=== PATIENT | male | born 1970 | race African-American/Black ===

== ENCOUNTER 2018-09-28 07:21 | Day surgery (SDC) | payer OTHER, BC ==
[~2018-09-28 07:21] MED LIST: Dexamethasone 4 MG/ML SDV ONE; HYDROmorphone 0.5 MG/0.5 ML Syringe ONE; Lactated Ringers 0 ML ONE; Lactated Ringers 1,000 ML IV SCH; Lidocaine 1% 6 ML ONE; Lidocaine 1%/Sod Bicarbonate in NS 8.4% 1 ML Syringe IDERM PRN; Midazolam 1 MG/ML 2 ML SDV ONE; Ondansetron 4 MG/2 ML SDV ONE; Propofol 200 MG/20 ML SDV ONE; Sodium Chloride 0.9% 10 ML Syringe FLUSH PRN; ceFAZolin 1 GM Vial ONE; fentaNYL 250 MCG/5 ML SDV ONE
--- NOTE | 2018-09-28 07:59 | PCM.PREANE ---
Preanesthetic Assessment - Anesthesia/Transfusion/Family Hx Anesthesia History: Prior Anesthesia Without Reaction Family History of Anesthesia Reaction: No Transfusion History: No Prior Transfusion(s) Intubation History: Unknown - Review of Systems General: No Symptoms Pulmonary: No Symptoms Cardiovascular: No Symptoms Gastrointestinal: No Symptoms Neurological: No Symptoms Other: Reports: None - Physical Assessment NPO Status Date: 09/27/18 NPO Status Time: 20:00 Pulse: 82 O2 Sat by Pulse Oximetry: 95 Respiratory Rate: 16 Blood Pressure: 123/89 Temperature: 36.8 C Height: 1.73 m Weight: 87 kg ASA Class: 1 Mental Status: Alert & Oriented x3 Airway Class: Mallampati = 2 Dentition: Reports: Normal Dentition, Missing Tooth/Teeth, Caries Thyro-Mental Finger Breadths: 3 Mouth Opening Finger Breadths: 3 ROM/Head Extension: Full Lungs: Clear to Auscultation, Normal Respiratory Effort Cardiovascular: Regular Rate, Regular Rhythm, No Murmurs - Lab Values: Laboratory Last Values MRSA (PCR) Negative 09/26/18 11:06 - Allergies Allergies/Adverse Reactions: Allergies Allergy/AdvReac Type Severity Reaction Status Date / Time No Known Allergies Allergy Verified 09/27/18 13:12 - Anesthesia Plan Pre-Op Medication Ordered: None - Acknowledgements Anesthesia Type Planned: General Anesthesia Pt an Appropriate Candidate for the Planned Anesthesia: Yes Alternatives and Risks of Anesthesia Discussed w Pt/Guardian: Yes Pt/Guardian Understands and Agrees with Anesthesia Plan: Yes PreAnesthesia Questionnaire - Past Health History Medical/Surgical History: Denies Medical/Surgical History Musculoskeletal History: Reports: Other (See Below) Other Musculoskeletal History: left ankle fracture - Past Surgical History GI Surgical History: Reports: Appendectomy - SUBSTANCE USE Smoking Status *Q: Never Smoker Recreational Drug Use History: No - HOME MEDS Home Medications: Home Meds Hydrocodone/Acetaminophen [Hydrocodon-Acetaminophen 5-325] 1 - 2 tab PO Q4H [History] - CURRENT (IN HOUSE) MEDS Current Meds: Current Medications Lactated Ringer's (Ringers, Lactated) 1,000 mls @ 125 mls/hr IV ASDIRECTED JOANIE Stop: 09/28/18 23:00 Lidocaine/Sodium Bicarbonate (Buffered Lidocaine 1% In Ns 8.4%) 0.25 ml IDERM ONETIME PRN PRN Reason: Prior to IV Start Stop: 09/28/18 18:00 Sodium Chloride (Saline Flush) 10 ml FLUSH ASDIRECTED PRN PRN Reason: Keep Vein Open Stop: 09/28/18 18:00 Discontinued Medications Cefazolin Sodium (Ancef) Confirm Administered Dose 2 gm .ROUTE .STK-MED ONE Stop: 09/28/18 06:33 Dexamethasone (Dexamethasone) Confirm Administered Dose 4 mg .ROUTE .STK-MED ONE Stop: 09/28/18 06:33 Fentanyl (Sublimaze) Confirm Administered Dose 250 mcg .ROUTE .STK-MED ONE Stop: 09/28/18 06:35 Hydromorphone HCl (Dilaudid) Confirm Administered Dose 0.5 mg .ROUTE .STK-MED ONE Stop: 09/28/18 06:34 Lidocaine HCl (Xylocaine-Mpf 1%) Confirm Administered Dose 6 mls @ as directed .ROUTE .STK-MED ONE Stop: 09/28/18 06:33 Lactated Ringer's (Ringers, Lactated) Confirm Administered Dose 1,000 mls @ as directed .ROUTE .STK-MED ONE Stop: 09/28/18 06:33 Midazolam HCl (Versed 1 Mg/Ml) Confirm Administered Dose 2 mg .ROUTE .STK-MED ONE Stop: 09/28/18 06:34 Ondansetron HCl (Zofran) Confirm Administered Dose 4 mg .ROUTE .STK-MED ONE Stop: 09/28/18 06:33 Propofol (Diprivan 20 Ml) Confirm Administered Dose 200 mg .ROUTE .STK-MED ONE Stop: 09/28/18 06:34
[2018-09-28] MEDS ORDERED: Bupivacaine 0.25% 30 ML SDV ONE (08:25)
[2018-09-28] MEDS ORDERED: Dexamethasone 4 MG/ML SDV ONE (09:43)
[2018-09-28] MEDS ORDERED: ePHEDrine/Normal Saline 25 MG/5 ML Syringe ONE (10:27)
[2018-09-28] MEDS ORDERED: Ketorolac 30 MG/ML SDV ONE (10:42)
--- NOTE | 2018-09-28 10:50 | PCM.POSTAN ---
POST ANESTHESIA ASSESSMENT - MENTAL STATUS Mental Status: Alert, Oriented - VITAL SIGNS Pulse Rate: 83 SaO2: 100 Resp Rate: 16 Blood Pressure: 121/81 Temperature: 36.3 C - RESPIRATORY Respiratory Status: Respiratory Rate WNL, Airway Patent, O2 Saturation Stable, Supplemental Oxygen - CARDIOVASCULAR CV Status: Pulse Rate WNL, Blood Pressure Stable - GASTROINTESTINAL GI Status: No Symptoms - PAIN Pain Score: 0 - POST OP HYDRATION Hydration Status: Adequate & Stable
[2018-09-28] MEDS ORDERED: fentaNYL 100 MCG/2 ML SDV IVPUSH PRN (10:51)
[2018-09-28] MEDS ORDERED: Ondansetron 4 MG/2 ML SDV IVPUSH PRN (10:51)
[2018-09-28] MEDS ORDERED: diphenhydrAMINE 50 MG/ML SDV IVPUSH PRN (10:51)
[2018-09-28] MEDS ORDERED: Meperidine 50 MG/ML Vial IVPUSH ONE (10:51)
[2018-09-28] MEDS ORDERED: Acetaminophen/HYDROcodone 325-5 MG Tab PO ONE (11:07)
--- NOTE | 2018-09-28 11:09 | CR ---
Left ankle: Six views of the left ankle were obtained. Comparison: Previous left ankle exam of 09/19/18. Study obtained utilizing C-arm device. Exam shows placement of plate and screws within the distal fibula affixing previous lateral malleolar fracture. Ankle mortise is symmetric. Single screw crosses the fibula into the tibia. Fluoroscopy time given as 10.5 seconds. Impression: 1. Procedural study showing fixation of previous lateral malleolar fracture. Diagnostic code #2
--- NOTE | 2018-10-02 07:17 | PCM.OPNOTE ---
- General Post-Op/Procedure Note Date of Surgery/Procedure: 09/28/18 Operative Procedure(s): open reduction internal fixation of left ankle bimalleolar equivalent fracture with syndesmosis fixation Pre Op Diagnosis: left ankle bimalleolar equivalent fracture with syndesmosis disruption Post-Op Diagnosis: Same Anesthesia Technique: General LMA, Local Primary Surgeon: Juan Miguel Melo Anesthesia Provider: Leeroy Montgomery Stave Hewer: Josie Hyatt EBL in mLs: 5 Complications: None Condition: Good
--- NOTE | 2018-10-02 15:26 | OR ---
DATE OF OPERATION: 09/28/2018 SURGEON: Juan Miguel Melo MD OPERATION PERFORMED: Open reduction internal fixation of left ankle bimalleolar equivalent fracture with syndesmosis fixation. PREOPERATIVE DIAGNOSIS: Left ankle bimalleolar equivalent fracture with syndesmosis disruption. POSTOPERATIVE DIAGNOSIS: Left ankle bimalleolar equivalent fracture with syndesmosis disruption. ANESTHESIA: General LMA with local. ANESTHESIA PROVIDER: Leeroy Montgomery. COMMISSIONING AGENT: Josie Hyatt LPN ESTIMATED BLOOD LOSS: 5 mL. COMPLICATIONS: None. CONDITION: Stable. DESCRIPTION OF PROCEDURE: The patient was identified in the preop holding area. The proper site was marked and identified by the surgeon. The patient was taken back to the operating theater where after adequate anesthesia, the patient's left lower extremity had a nonsterile tourniquet applied and was then sterilely prepped and draped in the usual sterile fashion. OR time-out was performed. The patient received 2 g IV Ancef. The left lower extremity was exsanguinated. Tourniquet was insufflated to 250 mmHg. Standard lateral incision was made over the lateral malleolus. This was taken down to the fracture site which was curetted and rongeured of all fracture hematoma. At this time, a [id number] reduction clamp was used for reduction of the lateral malleolus. The fibular length was found to be restored and there was found to be good cortical read at this time. A [place] distal fibular locking plate was then applied and found to be in adequate position. One screw was placed proximally in bicortical fashion to hold the plate in place and then 3 locking screws were placed distally. One syndesmotic screw was then placed and found to have adequate fixation of the syndesmosis. There was negative stress view at this point and another cortical screw was placed proximal to the fracture site. At this time, was found to have adequate fixation of the fracture site as well as the syndesmosis. The medial clear space showed no signs of widening. Adequate saline was irrigated through the wound. A 2-0 Vicryl was used subcutaneously and ashok used for the skin. The patient was placed in a sterile soft dressing and a posterior slab splint and sent to the PACU in stable condition. MMODAL /[id number]
== END 2018-09-28 12:54 | disposition home or self-care (01) ==
LOC: JD.SDS 07:21
PROVIDERS: ATTEND Orthopaedic Surgery
DX: S82.842A Displaced bimalleolar fracture of left lower leg, initial encounter for closed fracture (principal); S93.432A Sprain of tibiofibular ligament of left ankle, initial encounter; W00.0XXA Fall on same level due to ice and snow, initial encounter
CPT/HCPCS: 27814; 27829; 76000; 87641; A9270; C1713; C1776; J0131; J0690; J1100; J1170; J1885; J2001; J2250; J2405; J2704; J3010; J3490; J7050; J7120; 01480

== ENCOUNTER 2018-10-01 17:16 | Emergency (ER) | payer OTHER, BC ==
--- NOTE | 2018-10-01 17:59 | EDM.PDOC ---
ED HPI GENERAL MEDICAL PROBLEM - General Chief Complaint: Abdominal Pain Stated Complaint: SHARP PAIN IN RT SIDE Time Seen by Provider: 10/01/18 17:34 Source of Information: Reports: Patient, RN Notes Reviewed History Limitations: Reports: No Limitations - History of Present Illness INITIAL COMMENTS - FREE TEXT/NARRATIVE: The patient states that he fractured his left ankle on 09/19/2018, and went for operative repair this past , 09/28/2018, per Dr. Melo. He is prescribed [place] for pain, with his most recent dose around 05:30, as well as aspirin, that he was instructed to start taking after surgery. The patient now presents with right-sided abdominal pain, felt at the inferior aspect of his right ribs, mid axillary line, that developed early this morning. The pain is made worse with deep breathing and with most movements. It is absent if he remains still. The patient denies associated dyspnea, cough, wheezing, palpitations, or fever. No prior similar symptoms. Here in the ED, the patient's oxygen saturation was noted to be 89% on room air , 99% on 2 L of oxygen per nasal cannula. The patient does not have a PCP, although he did see Dr. Nelly Galarza when he initially broke his ankle. Right Abdomen Pain Score (Numeric/FACES): 7 - Related Data Allergies Allergy/AdvReac Type Severity Reaction Status Date / Time No Known Allergies Allergy Verified 09/28/18 08:12 Home Meds: Home Meds Hydrocodone/Acetaminophen [Hydrocodon-Acetaminophen 5-325] 1 - 2 tab PO Q4H [History] Aspirin [Ecotrin] 325 mg PO BID 10/01/18 [History] Past Medical History Musculoskeletal History: Reports: Fracture (left ankle) - Past Surgical History GI Surgical History: Reports: Appendectomy Musculoskeletal Surgical History: Reports: ORIF (left ankle 09/28/2018, per Dr. Melo) Social & Family History - Tobacco Use Smoking Status *Q: Never Smoker - Caffeine Use Caffeine Use: Reports: Tea - Alcohol Use Alcohol Use History: Yes Alcohol Use Frequency: Socially - Recreational Drug Use Recreational Drug Use: No - Living Situation & Occupation Living situation: Reports: Single, Other (Rectory) Occupation: Employed (laboratory technologist) ED ROS GENERAL - Review of Systems Review Of Systems: ROS reveals no pertinent complaints other than HPI. ED EXAM, GENERAL - Physical Exam Exam: See Below Exam Limited By: No Limitations General Appearance: Alert, WD/WN, No Apparent Distress Eye Exam: Bilateral Eye: EOMI, Normal Inspection Ears: Normal External Exam, Hearing Grossly Normal Nose: Normal Inspection Throat/Mouth: Normal Inspection, Normal Lips, Normal Voice, No Airway Compromise Head: Atraumatic, Normocephalic Neck: Normal Inspection, Full Range of Motion Respiratory/Chest: No Respiratory Distress, Lungs Clear, Normal Breath Sounds, No Accessory Muscle Use, Chest Non-Tender Cardiovascular: Normal Peripheral Pulses, Regular Rate, Rhythm, No Edema, No Gallop, No JVD, No Murmur, No Rub Peripheral Pulses: 4+: Radial (L), Radial (R) GI/Abdominal: Normal Bowel Sounds, Soft, No Organomegaly, No Distention, No Abnormal Bruit, No Mass, Tender (Minimal tenderness over inferior aspect of right ribs, mid axillary line. No associated rub.) (Male) Exam: Deferred Rectal (Males) Exam: Deferred Back Exam: Normal Inspection, Full Range of Motion, NT Extremities: Normal Range of Motion, No Pedal Edema (RLE), Normal Capillary Refill, Other (Left leg in splint) Neurological: Alert, Oriented, Normal Cognition, No Motor/Sensory Deficits Psychiatric: Normal Affect Skin Exam: Warm, Dry, Intact, Normal Color, No Rash Course - Vital Signs Last Recorded V/S: Last Vital Signs Temp 36.3 C 10/01/18 17:29 Pulse 80 10/01/18 17:29 Resp 20 10/01/18 17:29 BP 117/77 10/01/18 17:29 Pulse Ox 89 L 10/01/18 17:29 - Orders/Labs/Meds Orders: Active Orders 24 hr Category Date Time Status Chest 2V [CR] Stat Exams 10/01/18 17:58 Taken Sodium Chloride 0.9% [Normal Saline] 1,000 ml Med 10/01/18 19:45 Active IV ASDIRECTED Sodium Chloride 0.9% [Normal Saline] 250 ml Med 10/01/18 19:45 Active IV ASDIRECTED Medication Orders Sodium Chloride (Normal Saline) 1,000 mls @ 150 mls/hr IV ASDIRECTED JOANIE Sodium Chloride (Normal Saline) 250 mls @ 75 mls/hr IV ASDIRECTED JOANIE Last Admin: 10/01/18 20:07 Dose: 75 mls/hr Labs: Laboratory Tests 10/01/18 10/01/18 10/01/18 Range/Units 18:51 18:51 18:51 WBC 9.94 H (4.23-9.07) K/mm3 RBC 5.45 (4.63-6.08) M/mm3 Hgb 13.8 (13.7-17.5) gm/L Hct 43.0 (40.1-51.0) % MCV 78.9 L (79.0-92.2) fl MCH 25.3 L (25.7-32.2) pg MCHC 32.1 L (32.2-35.5) g/dl RDW Std Deviation 40.0 (35.1-43.9) fL Plt Count 233 (163-337) K/mm3 MPV 10.9 (9.4-12.3) fl Neutrophils % (Manual) 74 H (40-60) % Band Neutrophils % 0 (0-10) % Lymphocytes % (Manual) 16 L (20-40) % Atypical Lymphs % 0 % Monocytes % (Manual) 10 (2-10) % Eosinophils % (Manual) 0 L (0.8-7.0) % Basophils % (Manual) 0 L (0.2-1.2) Platelet Estimate Adequate Plt Morphology Comment Normal RBC Morph Comment Normal PT (9.5-12.1) SECONDS INR APTT (24-31) SECONDS D-Dimer, Quantitative 3.55 H (0.19-0.50) mg/L Sodium 137 (136-145) mEq/L Potassium 4.4 (3.5-5.1) mEq/L Chloride 100 (98-107) mEq/L Carbon Dioxide 25 (21-32) mEq/L Anion Gap 16.4 H (5-15) BUN 21 H (7-18) mg/dL Creatinine 1.2 (0.7-1.3) mg/dL Est Cr Clr Drug Dosing 66.88 mL/min Estimated GFR (MDRD) > 60 (>60) mL/min BUN/Creatinine Ratio 17.5 (14-18) Glucose 117 H (74-106) mg/dL Calcium 9.6 (8.5-10.1) mg/dL Total Bilirubin 0.4 (0.2-1.0) mg/dL AST 34 (15-37) U/L ALT 49 (16-63) U/L Alkaline Phosphatase 97 (46-116) U/L Total Protein 8.4 H (6.4-8.2) g/dl Albumin 3.7 (3.4-5.0) g/dl Globulin 4.7 gm/dL Albumin/Globulin Ratio 0.8 L (1-2) 10/01/18 Range/Units 18:51 WBC (4.23-9.07) K/mm3 RBC (4.63-6.08) M/mm3 Hgb (13.7-17.5) gm/L Hct (40.1-51.0) % MCV (79.0-92.2) fl MCH (25.7-32.2) pg MCHC (32.2-35.5) g/dl RDW Std Deviation (35.1-43.9) fL Plt Count (163-337) K/mm3 MPV (9.4-12.3) fl Neutrophils % (Manual) (40-60) % Band Neutrophils % (0-10) % Lymphocytes % (Manual) (20-40) % Atypical Lymphs % % Monocytes % (Manual) (2-10) % Eosinophils % (Manual) (0.8-7.0) % Basophils % (Manual) (0.2-1.2) Platelet Estimate Plt Morphology Comment RBC Morph Comment PT 10.4 (9.5-12.1) SECONDS INR 0.95 APTT 24 (24-31) SECONDS D-Dimer, Quantitative (0.19-0.50) mg/L Sodium (136-145) mEq/L Potassium (3.5-5.1) mEq/L Chloride (98-107) mEq/L Carbon Dioxide (21-32) mEq/L Anion Gap (5-15) BUN (7-18) mg/dL Creatinine (0.7-1.3) mg/dL Est Cr Clr Drug Dosing mL/min Estimated GFR (MDRD) (>60) mL/min BUN/Creatinine Ratio (14-18) Glucose (74-106) mg/dL Calcium (8.5-10.1) mg/dL Total Bilirubin (0.2-1.0) mg/dL AST (15-37) U/L ALT (16-63) U/L Alkaline Phosphatase (46-116) U/L Total Protein (6.4-8.2) g/dl Albumin (3.4-5.0) g/dl Globulin gm/dL Albumin/Globulin Ratio (1-2) Meds: Medications Generic Name Dose Route Start Last Admin Trade Name Freq PRN Reason Stop Dose Admin Sodium Chloride 1,000 mls @ 150 mls/hr 10/01/18 19:45 Normal Saline IV ASDIRECTED JOANIE Sodium Chloride 250 mls @ 75 mls/hr 10/01/18 19:45 10/01/18 20:07 Normal Saline IV 75 mls/hr ASDIRECTED JOANIE Administration Discontinued Medications Generic Name Dose Route Start Last Admin Trade Name Freq PRN Reason Stop Dose Admin Iopamidol 100 ml 10/01/18 19:36 10/01/18 20:07 Isovue-370 (76%) IVPUSH 10/01/18 19:37 100 ml ONETIME ONE Administration Rivaroxaban 15 mg 10/01/18 20:33 10/01/18 20:46 Xarelto PO 10/01/18 20:34 15 mg ONETIME STA Administration - Re-Assessments/Exams Free Text/Narrative Re-Assessment/Exam: 10/01/18 17:58 Hopefully, the patient is only suffering from a muscle spasm, but I want to be sure that he does not have a PE. I have therefore ordered some blood work that includes a D-dimer, as well as a chest x-ray. His D-dimer may return elevated because of his recent surgery, and if so, I will have no choice but to order a CT angiogram of the chest. 10/01/18 18:45 2-view chest radiograph appears to be grossly normal. The cardiac silhouette is within normal limits. No pulmonary vascular congestion. No pleural effusions. No focal infiltrate. No pneumothorax. Several subcentimeter right pulmonary nodules incidentally noted. Formal read per the Radiologist pending. 10/01/18 19:34 The patient's D-dimer has returned significantly elevated at 3.55. His renal function is normal. This was discussed with the patient. I have therefore ordered a CT angiogram of the chest to evaluate for a PE, along with IV fluid. 10/01/18 20:29 CT angiogram of the chest is read by Dr. Barros as : 1. Right-sided pulmonary emboli as described above. 2. Bibasilar atelectasis. Findings worse on the right side. Difficult to exclude early pulmonary infarct on the right side. 3. Mild cardiomegaly. I will start the patient on oral Xarelto. 10/01/18 20:[address] findings were discussed with the patient. As above, the patient is being started on Xarelto, and I will write a 30 day prescription for him. He has been given the Xarelto coupon, which gives him a 30 day supply for free. I will refer the patient to Dr. Galarza, with whom he can follow-up, and decide on the best long-term anticoagulant. Departure - Departure Time of Disposition: 20:52 Disposition: Home, Self-Care 01 Condition: Fair Clinical Impression: Pulmonary embolus with infarction - Discharge Information *PRESCRIPTION DRUG MONITORING PROGRAM REVIEWED*: Not Applicable *COPY OF PRESCRIPTION DRUG MONITORING REPORT IN PATIENT YARA: Not Applicable Referrals: Juan Miguel Melo MD [Primary Care Provider] - Nelly Galarza MD [Physician] - Forms: ED Department Discharge Additional Instructions: You were seen in the emergency room for right-sided chest and abdominal pain whenever you breathed or moved, since this morning. Workup in the ER included blood work, a chest x-ray, and a CT angiogram of your chest. Your workup found that you have a blood clot in your lungs, known as a pulmonary embolus, that has caused pleurisy. You have been started on the anticoagulant medicine Xarelto. A prescription for Xarelto has been provided to you, along with a coupon that gives you a 30 day free supply. Start taking Xarelto, 15 mg every 12 hours, with food, for 21 days , as prescribed. After 21 days, you then switch to 20 mg once a day, also with food. Because you are on Xarelto, you no longer need to take aspirin. In addition to Xarelto, you may also take your previously prescribed [place] or [id number] Tylenol as needed for discomfort. You should not take significant amounts of NSAIDs, such as ibuprofen or Aleve while on Xarelto. Follow-up with Dr. Nelly Galarza, as a primary care physician, to determine what the best long-term anticoagulant for you is. If any other problems, please do not hesitate to return to the ER. - My Orders Last 24 Hours: My Active Orders 10/01/18 17:58 Chest 2V [CR] Stat 10/01/18 19:45 Sodium Chloride 0.9% [Normal Saline] 1,000 ml IV ASDIRECTED Sodium Chloride 0.9% [Normal Saline] 250 ml IV ASDIRECTED - Assessment/Plan Last 24 Hours: My Active Orders 10/01/18 17:58 Chest 2V [CR] Stat 10/01/18 19:45 Sodium Chloride 0.9% [Normal Saline] 1,000 ml IV ASDIRECTED Sodium Chloride 0.9% [Normal Saline] 250 ml IV ASDIRECTED
[2018-10-01] MEDS ORDERED: Iopamidol 755 Mg/ML 100 ML Bottle IVPUSH ONE (19:36)
[2018-10-01] MEDS ORDERED: Sodium Chloride 0.9% 1,000 ML IV SCH (19:45)
[2018-10-01] MEDS ORDERED: Sodium Chloride 0.9% 250 ML IV SCH (19:45)
--- NOTE | 2018-10-01 20:22 | CT ---
CT chest Technique: Multiple axial sections through the chest were obtained. Intravenous contrast was utilized. Study has been performed as a pulmonary angiogram protocol. Findings: Filling defects compatible with pulmonary emboli are seen within distal right main pulmonary artery extending into the segmental branches of the right upper and right lower lung as well as extending into the subsegmental branches of the right lower lung. No left-sided pulmonary embolism is seen. Mediastinum and hilar regions show no adenopathy or mass. Heart size appears slightly enlarged. Visualized upper abdominal structures appear within normal limits. Slight parenchymal density is noted within the left lung base compatible with atelectasis. Parenchymal density is noted within the right lung base also compatible with atelectasis and difficult to exclude early pulmonary infarct. Lungs otherwise are clear. No pleural effusions or pneumothorax is seen. Bone window settings were reviewed which shows no acute osseous abnormality. Impression: 1. Right-sided pulmonary emboli as described above. 2. Bibasilar atelectasis. Findings worse on the right side. Difficult to exclude early pulmonary infarct on the right side. 3. Mild cardiomegaly. Diagnostic code #5
[2018-10-01] MEDS ORDERED: Rivaroxaban 10 MG Tab PO STA (20:33)
--- NOTE | 2018-10-02 07:58 | CR ---
Chest: Two views of the chest were obtained. Comparison: No prior chest x-ray. Heart size at the upper limits of normal. Upper mediastinum is within normal limits. Slight atelectasis is noted within both lung bases. Lungs otherwise are clear. Bony structures appear within normal limits for the patient's age. Impression: 1. Mild bibasilar atelectasis. Heart size at the upper limits of normal. 2. Nothing acute is otherwise seen. Diagnostic code #2
== END 2018-10-01 21:23 | disposition home or self-care (01) ==
LOC: JD.ED 17:16
DX: I26.99 Other pulmonary embolism without acute cor pulmonale (principal); Z79.82 Long term (current) use of aspirin; Z79.899 Other long term (current) drug therapy
CPT/HCPCS: 36415; 71046; 71275; 80053; 85007; 85027; 85379; 85610; 85730; 99284; A9270; J7050; Q9967